=== PATIENT | female | born 1935 | race Caucasian/White ===

== ENCOUNTER → 2023-10-12 11:07 | Outpatient (REF) | payer MEDICARE, SELFPAY | LOC: DHCBS MAIN 11:07 | PROVIDERS: ATTENDING PHYSICIAN Internal Medicine Cardiovascular Disease; FAMILY PHYSICIAN Family Medicine | DX: I44.7 Left bundle-branch block, unspecified (principal) | CPT/HCPCS: 93306 ==

== ENCOUNTER → 2023-10-17 12:43 | Outpatient (REF) | payer MEDICARE, SELFPAY | LOC: PAVMRI 12:43 | PROVIDERS: ATTENDING PHYSICIAN Psychiatry & Neurology Neurology; FAMILY PHYSICIAN Family Medicine | DX: R41.3 Other amnesia (principal) | CPT/HCPCS: 70553; A9575 ==

== ENCOUNTER 2023-10-25 09:51 | Outpatient (RCR) | payer SELFPAY | END 2023-10-25 23:59 | disposition home or self-care (01) | LOC: ROT 09:51 | PROVIDERS: ATTENDING PHYSICIAN Psychiatry & Neurology Neurology | DX: Z02.4 Encounter for examination for driving license (principal) ==

== ENCOUNTER → 2023-11-07 09:53 | Outpatient (REF) | payer MEDICARE, SELFPAY | LOC: RAD 09:53 | PROVIDERS: ATTENDING PHYSICIAN Family Medicine | DX: M81.0 Age-related osteoporosis without current pathological fracture (principal) | CPT/HCPCS: 77080 ==

== ENCOUNTER 2023-11-15 13:00 | Outpatient (RCR) | payer MEDICARE, SELFPAY | END 2023-11-15 23:59 | disposition home or self-care (01) | LOC: ROT 13:00 | PROVIDERS: ATTENDING PHYSICIAN Psychiatry & Neurology Neurology; FAMILY PHYSICIAN Family Medicine | DX: R41.3 Other amnesia (principal); Z73.6 Limitation of activities due to disability | CPT/HCPCS: 96125; 97129; 97130; 97167; 97530 ==

== ENCOUNTER 2023-12-17 09:26 | Outpatient (RCR) | payer MEDICARE, SELFPAY | END 2023-12-17 23:59 | disposition home or self-care (01) | LOC: ROT 09:26 | PROVIDERS: ATTENDING PHYSICIAN Psychiatry & Neurology Neurology; FAMILY PHYSICIAN Family Medicine | DX: R41.3 Other amnesia (principal); R41.841 Cognitive communication deficit; Z73.6 Limitation of activities due to disability | CPT/HCPCS: 97010; 97129; 97130; 97530; 97535 ==

== ENCOUNTER → 2023-12-27 11:17 | Outpatient (REF) | payer MEDICARE, SELFPAY | LOC: RAD 11:17 | PROVIDERS: ATTENDING PHYSICIAN Internal Medicine Rheumatology; FAMILY PHYSICIAN Family Medicine | DX: E07.9 Disorder of thyroid, unspecified (principal); M81.0 Age-related osteoporosis without current pathological fracture; S22.048D Other fracture of fourth thoracic vertebra, subsequent encounter for fracture with routine healing | CPT/HCPCS: 72072; 72110 ==

== ENCOUNTER 2024-01-07 10:21 | Outpatient (RCR) | payer MEDICARE, SELFPAY | END 2024-01-07 23:59 | disposition home or self-care (01) | LOC: ROT 10:21 | PROVIDERS: ATTENDING PHYSICIAN Psychiatry & Neurology Neurology; FAMILY PHYSICIAN Family Medicine | DX: R41.3 Other amnesia (principal); R41.841 Cognitive communication deficit; Z73.6 Limitation of activities due to disability | CPT/HCPCS: 97129; 97130; 97530; 97535 ==